=== PATIENT | male | born 1980 | race Caucasian/White ===

== ENCOUNTER → 2020-06-14 | Outpatient (CLI) | payer OTHER, BC ==
[2020-06-14 10:50] LABS: BASO % 0 % (0-3); EOS % 0 % (0-3); HEMATOCRIT 43.4 % (39.0-53.0); HEMOGLOBIN 14.8 g/dL (13.0-17.5); LYMPH # 0.7 x10^3/uL (1.0-4.8); LYMPH % 6 % (24-48); MEAN CORPUSCULAR HEMOGLOBIN 30 pg (25-35); MEAN CORPUSCULAR HGB CONC 34 g/dL (31-37); MEAN CORPUSCULAR VOLUME 89 fL (79-100); MONO # 0.4 x10^3/uL (0.0-1.1); MONO % 4 % (0-9); NEUT # 9.7 x10^3uL (1.8-7.7); NEUT % 90 % (31-73); PLATELET COUNT 249 x10^3/uL (140-400); RED BLOOD COUNT 4.88 x10^6/uL (4.30-5.70); RED CELL DISTRIBUTION WIDTH 12.8 % (11.5-14.5); WHITE BLOOD COUNT 10.8 x10^3/uL (4.0-11.0)
[2020-06-14 10:52] LABS: CREATININE 0.9 mg/dL (0.7-1.3); POTASSIUM 4.5 mmol/L (3.5-5.1)
[2020-06-14 11:03] LABS: ALBUMIN 4.2 g/dL (3.4-5.0); ALBUMIN/GLOBULIN RATIO 0.9 (1.0-1.7); TOTAL BILIRUBIN 0.9 mg/dL (0.2-1.0); TOTAL PROTEIN 8.7 g/dL (6.4-8.2)
== END | disposition home or self-care (01) ==
LOC: PMG 10:17
PROVIDERS: ATTEND Physician Assistant
DX: R11.0 Nausea (principal); R10.30 Lower abdominal pain, unspecified
CPT/HCPCS: 36415; 80053; 82150; 83690; 85025; 86140

== ENCOUNTER 2021-09-21 08:09 | Emergency (ER) | payer OTHER, BC ==
[~2021-09-21] VITALS: Ht 188 cm; Wt 123.1 kg
[2021-09-21 08:18] VITALS: BP 128/91
--- NOTE | 2021-09-21 08:48 | RAD ---
Study: XR ELBOW COMPLETE_LEFT 3+VIEWS Indication: Fall. Comparison: None. Findings: Alignment is anatomic. Small joint effusion with fat pad elevation. No displaced fracture. On one of the lateral views minimal cortical irregularity at the volar margin of the radial head/neck junction but difficult to confirm as a fracture as this is not apparent on the additional lateral view. Tiny o lecranon process enthesophyte. Impression: Small joint effusion but no fracture is definitively identified. An occult radial head fracture is mcconnell spected. Follow-up radiographs in 2-3 weeks to include a dedicated radial head/Lockwood's view could be performed to help confirm. Electronically signed by: JJ NGUYỄN MD (09/21/2021 8:46 AM) DIDI
--- NOTE | 2021-09-21 08:55 | PHYS DOC ---
Past History Past Surgical History: No Surgical History Alcohol Use: None General Adult EDM: Chief Complaint: ELBOW PROBLEM HPI: HPI: 41-year-old male presents with left elbow pain. The patient was riding a skateboard yesterday when he fell onto his left forearm. He had from the shoulder to the elbow. His pain is most significant just proximal to the elbow joint. It is slightly better today than yesterday but is still quite painful. He wants to make sure is not broken. He denies any other injuries or concerns at this time. Review of Systems: Review of Systems: Constitutional: Denies fever or chills Eyes: Denies change in visual acuity HENT: Denies nasal congestion or sore throat Respiratory: Denies cough or shortness of breath Cardiovascular: Denies chest pain or edema GI: Denies abdominal pain, nausea, vomiting, bloody stools or diarrhea : Denies dysuria Musculoskeletal: Left elbow pain Integument: Denies rash Neurologic: Denies headache, focal weakness or sensory changes Endocrine: Denies polyuria or polydipsia Lymphatic: Denies swollen glands Psychiatric: Denies depression or anxiety Allergies: Allergies: Allergies Coded Allergies Type Severity Reaction Last Updated Verified morphine Allergy Unknown 09/21/21 Yes Physical Exam: PE: Constitutional: Well developed, well nourished, no acute distress, non-toxic appearance. [] HENT: Normocephalic, atraumatic, bilateral external ears normal, oropharynx moist, no oral exudates, nose normal. [] Eyes: PERRLA, EOMI, conjunctiva normal, no discharge. [] Neck: Normal range of motion, no tenderness, supple, no stridor. [] Cardiovascular:Heart rate regular rhythm, no murmur [] Lungs & Thorax: Bilateral breath sounds clear to auscultation [] Abdomen: Bowel sounds normal, soft, no tenderness, no masses, no pulsatile masses. [] Skin: Warm, dry, no erythema, no rash. [] Back: No tenderness, no CVA tenderness. [] Extremities: Tenderness and swelling of the left posterior elbow, no obvious deformity or ecchymosis. [] Neurologic: Alert and oriented X 3, normal motor function, normal sensory function, no focal deficits noted. [] Psychologic: Affect normal, judgement normal, mood normal. [] Current Patient Data: Vital Signs: Vital Signs Date Time Temp Pulse Resp B/P (MAP) Pulse Ox O2 Delivery O2 Flow Rate FiO2 09/21/21 08:18 81 18 128/91 (103) 97 EKG: EKG: [] Radiology/Procedures: Radiology/Procedures: [] Heart Score: C/O Chest Pain: N/A Risk Factors: Risk Factors: DM, Current or recent (<one month) smoker, HTN, HLP, family history of CAD, obesity. Risk Scores: Score 0 - 3: 2.5% MACE over next 6 weeks - Discharge Home Score 4 - 6: 20.3% MACE over next 6 weeks - Admit for Clinical Observation Score 7 - 10: 72.7% MACE over next 6 weeks - Early Invasive Strategies Course & Med Decision Making: Course & Med Decision Making Pertinent Labs and Imaging studies reviewed. (See chart for details) The patient's x-ray is negative for obvious fracture. The official read does state possible radial head fracture and recommends follow-up. See official read for more details. The swelling could be soft tissue injury or inflammation of the olecranon bursa. I recommended ice, ibuprofen, compression. If this does not improve within a week he should seek further imaging and evaluation. He is stable for discharge at this time. [] Dragon Disclaimer: Dragon Disclaimer: This electronic medical record was generated, in whole or in part, using a voice recognition dictation system. Departure Departure: Impression: Primary Impression: Left elbow pain Disposition: HOME / SELF CARE / HOMELESS Condition: STABLE Referrals: PCP,NO (PCP) Patient Instructions: Elbow Contusion, Skne-an-Firk NOAH CHANDRA DO Sep 21, 2021 08:55
== END 2021-09-21 09:06 | disposition home or self-care (01) ==
LOC: ER 08:09
DX: M25.522 Pain in left elbow (principal); R22.32 Localized swelling, mass and lump, left upper limb; Z88.5 Allergy status to narcotic agent
CPT/HCPCS: 73080; 99283

== ENCOUNTER → 2021-09-29 | Outpatient (CLI) | payer OTHER, BC ==
[2021-09-21 08:18] VITALS: BP 128/91
--- NOTE | 2021-09-29 17:18 | RAD ---
EXAM: LEFT ELBOW 3 VIEWS. HISTORY: Left elbow pain. COMPARISON: 09/21/2021. FINDINGS: A joint effusion persists. A minimally depressed fracture of the anterior aspect of the rad ial head is noted on the lateral projection. Joint spaces and alignment are maintained. IMPRESSION: 1. Minimally depressed fracture of the anterior aspect of the radial head in unchanged alignment. Electronically signed by: Ellyn Boyce MD (09/29/2021 5:15 PM) [id number]
== END ==
LOC: RAD 13:22
PROVIDERS: ATTEND Physician Assistant Medical
DX: S59.902A Unspecified injury of left elbow, initial encounter (principal); S52.122A Displaced fracture of head of left radius, initial encounter for closed fracture; X58.XXXA Exposure to other specified factors, initial encounter; Y93.89 Activity, other specified; Y92.89 Other specified places as the place of occurrence of the external cause; Y99.8 Other external cause status
CPT/HCPCS: 73080